=== PATIENT | female | born 1990 | race Two or more races ===

== ENCOUNTER 2025-03-14 08:24 | Emergency (ER) | payer OTHER ==
[~2025-03-14] VITALS: Ht 162.6 cm; Wt 151.0 kg
[2025-03-14] MEDS ORDERED: KETOROLAC TROMETHAMINE 30 MG VIAL IM ONE (10:15)
[2025-03-14] MEDS ORDERED: MECLIZINE HCL25 MG PO (10:31)
== END 2025-03-14 11:00 | disposition home or self-care (01) ==
LOC: ER 08:24
DX: E16.2 Hypoglycemia, unspecified (principal); R42 Dizziness and giddiness; Z91.013 Allergy to seafood